=== PATIENT | male | born 1950 | race Hispanic/Latino ===

== ENCOUNTER → 2017-12-03 | Outpatient (CLI) | payer MEDICARE ==
[~2017-12-03] MED LIST: FINASTERIDE5 MG PO; FLOMAX0.4 MG PO; LISINOPRIL10 MG PO; OMEPRAZOLE40 MG PO; SIMVASTATIN20 MG PO; TEMAZEPAM15 MG PO
--- NOTE | 2017-12-03 11:44 | Diagnostic Imaging Report ---
PROCEDURE: Frontal and lateral views of the chest. COMPARISON: None available. INDICATIONS: COUGH, SHORTNESS OF BREATH FOR 1 MONTH FINDINGS: Lines/tubes: None. Lungs: The lungs are well inflated and clear. There is no evidence of pneumonia or pulmonary edema. Biapical scaring. Pleura: There is no pleural effusion or pneumothorax. Heart and mediastinum: The heart and the mediastinum are normal. Bones: No acute bony abnormality. Degenerative changes of thoracic spine. IMPRESSION: 1. No acute cardiopulmonary disease. Dictated by: Pierre Helms M.D. on 12/03/2017 at 11:46 Electronically approved by: Pierre Helms M.D. on 12/03/2017 at 11:46
== END ==
LOC: RAD 10:53
PROVIDERS: ATTEND Internal Medicine
DX: J41.0 Simple chronic bronchitis (principal); R05 Cough
CPT/HCPCS: 71046

== ENCOUNTER → 2019-01-08 | Outpatient (CLI) | payer MEDICARE ==
--- NOTE | 2019-01-08 15:51 | Diagnostic Imaging Report ---
EXAMINATION: PA and lateral views of the chest. COMPARISON: None CLINICAL HISTORY: Chronic bronchitis DISCUSSION: The lungs are well-inflated and without focal airspace consolidation, pleural effusion, or pneumothorax. Atherosclerotic calcification of the thoracic aorta. Normal heart size. No pulmonary edema. No acute osseous abnormality. Multilevel degenerative disc changes of the thoracic spine. IMPRESSION: No acute cardiopulmonary abnormalities. Signed by: Dr. Jelani Briceno M.D. on 01/08/2019 3:48 PM
== END ==
LOC: RAD 15:13
PROVIDERS: ATTEND Internal Medicine
DX: J41.0 Simple chronic bronchitis (principal); I10 Essential (primary) hypertension
CPT/HCPCS: 71046

== ENCOUNTER → 2019-09-19 | Outpatient (CLI) | payer MEDICARE ==
[~2019-09-19] MED LIST changes: +DIATRIZOATE MEGL/DIATRIZOA SOD 30 ML BTL PO ONE; +IOPAMIDOL 370 MG/ML 200 ML INFUS..BTL INJ ONE; +SODIUM CHLORIDE 0.9% 50ML 50 ML ONE
[2019-09-19 10:53] LABS: BLOOD UREA NITROGEN 16 mg/dL (7-26); BUN/CREATININE RATIO 14 (6-25); CREATININE, SERUM 1.16 mg/dL (0.72-1.25); EST GLOMERULAR FILTRATION RATE > 60 ML/MIN (60-)
--- NOTE | 2019-09-19 15:41 | Diagnostic Imaging Report ---
CT of the abdomen and pelvis, with contrast, 09/19/2019. History: Lower abdominal pain. Comparison: None available. Technique: Multidetector CT scanning of the abdomen and pelvis was performed from the level of the lung bases to the inferior pubic rami after intravenous and oral administration of contrast. Coronal and sagittal multiplanar reformations were obtained. RADIATION DOSE: Total DLP: 478 mGy*cm Dose modulation, iterative reconstruction, and/or weight based adjustment of the mA/kV was utilized to reduce the radiation dose to as low as reasonably achievable. Discussion: LUNG BASES: No visualized abnormalities. ABDOMEN: A 2.5 cm oval hypodense lesion is present within the left adrenal gland. The liver, gallbladder, biliary tree, spleen, pancreas, right adrenal gland, and kidneys are normal. The hepatic vein, portal vein, and splenic vein are patent. The abdominal aorta is within normal limits for size. The stomach and small bowel are unremarkable. The appendix is visualized and is normal. Multiple diverticuli are present within the descending and sigmoid colon. There is sigmoid wall thickening with slight adjacent posterior mesenteric fat stranding. There is no free air or focal fluid collection. There is no evidence of adenopathy or free fluid. PELVIS: The bladder is unremarkable. The prostate is prominent measuring 5.3 cm in transverse diameter. Fat-containing right inguinal hernia is noted. There is no evidence of free fluid or adenopathy. BONES AND SOFT TISSUES: Degenerative changes are present throughout the lumbar spine without evidence of lytic or sclerotic lesion. IMPRESSION: 1. Left adrenal lesion which may be further evaluated with noncontrast CT. 2. Mild colonic diverticulitis without evidence of perforation or abscess. 3. Prostatomegaly. Signed by: Daniel Ellis on 09/19/2019 3:39 PM
== END ==
LOC: CT 09:10
PROVIDERS: ATTEND Internal Medicine Gastroenterology
DX: R10.30 Lower abdominal pain, unspecified (principal)
CPT/HCPCS: 36415; 74177; 82565; 84520; Q9967

== ENCOUNTER 2019-10-22 11:23 | Emergency (ER) | payer MEDICARE ==
[~2019-10-22] VITALS: Ht 317.5 cm; Wt 77.6 kg
[~2019-10-22 11:23] MED LIST changes: -DIATRIZOATE MEGL/DIATRIZOA SOD 30 ML BTL PO ONE; -IOPAMIDOL 370 MG/ML 200 ML INFUS..BTL INJ ONE; -SODIUM CHLORIDE 0.9% 50ML 50 ML ONE
--- OUTSIDE RECORDS SUMMARY | 2019-10-22 11:26 | XMS REPORT ---
Author Author [facility] Address Unknown Phone Unavailable Care Team Providers Care Graphic Art Technician Name Role Phone MYA GREEN Unavailable Unavailable AIMEE LOPEZ Unavailable Unavailable Payers Payer Name Policy Type Policy Number Effective Date Expiration Date Problems This patient has no known problems. Allergies, Adverse Reactions, Alerts Allergy Name Allergy Type Status Severity Reaction(s) Onset Date Inactive Date Treating Clinician Comments citalopram DA Active SV 2018-03-28 00:00:00 No Known Contrast Allergies DA Active U 2005-11-11 00:00:00 No Known Drug Allergies DA Active U 2005-11-11 00:00:00 No Known Food Allergies DA Active U 2005-11-11 00:00:00 No Known Other Allergies DA Active U 2005-11-11 00:00:00 Medications This patient has no known medications. Results Test Description Test Time Test Comments Text Results Atomic Results Result Comments CT ABDOMEN/PELVIS W 2019-09-19 15:32:00 [place] [address] Patient Name: SANGEETA LOYA MR #: [id number] : 1950 Age/Sex: 69/M Req #: [id number] Adm Physician: Ordered by: MYA GREEN MD Report #: [id number] Location: [place] Room/Bed: Procedure: [id number] CT/CT ABDOMEN/PELVIS W Exam Date: 09/19/19 Exam Time: 1112 REPORT STATUS: Signed CT of the abdomen and pelvis, with contrast, 0. History: Lower abdominal pain. Comparison: None available. Technique: Multidetector CT scanning of the abdomen and pelvis was performed from the level of the lung bases to the inferior pubic rami after intravenous and oral administration of contrast. Coronal and sagittal multiplanar reformations were obtained. RADIATION DOSE: Total DLP: 478 mGy*cm Dose modulation, iterative reconstruction, and/or weight based adjustment of the mA/kV was utilized to reduce the radiation dose to as low as reasonably achievable. Discussion: LUNG BASES: No visualized abnormalities. ABDOMEN: A 2.5 cm oval hypodense lesion is present within the left adrenal gland. The liver, gallbladder, biliary tree, spleen, pancreas, right adrenal gland, and kidneys are normal. The hepatic vein, portal vein, and splenic vein are patent. The abdominal aorta is within normal limits for size. The stomach and small bowel are unremarkable. The appendix is visualized and is normal. Multiple diverticuli are present within the descending and sigmoid colon. There is sigmoid wall thickening with slight adjacent posterior mesenteric fat stranding. There is no free air or focal fluid collection. There is no evidence of adenopathy or free fluid. PELVIS: The bladder is unremarkable. The prostate is prominent measuring 5.3 cm in transverse diameter. Fat-containing right inguinal hernia is noted. There is no evidence of free fluid or adenopathy. BONES AND SOFT TISSUES: Degenerative changes are present throughout the lumbar spine without evidence of lytic or sclerotic lesion. IMPRESSION: 1. Left adrenal lesion which may be further evaluated with noncontrast CT. 2. Mild colonic diverticulitis without evidence of perforation or abscess. 3. Prostatomegaly. Signed by: Daniel Ellis on 09/19/2019 3:39 PM Dictated By: DANIEL ELLIS MD 1539 Transcribed By: ANNA on 09/19/19 1539 COPY TO: MYA GREEN MD CHEST 2 VIEWS 2019-01-08 15:46:00 [place] [id number] [place] [address] Patient Name: SANGEETA LOYA MR #: [id number] : 1950 Age/Sex: 68/M Req #: [id number] Adm Physician: Ordered by: AIMEE LOPEZ MD Report #: [id number] Location: RAD Room/Bed: Procedure: [id number] DX/CHEST 2 VIEWS Exam Date: 01/08/19 Exam Time: 1531 REPORT STATUS: Signed EXAMINATION: PA and lateral views of the chest. COMPAR CLOVER: None CLINICAL HISTORY: Chronic bronchitis DISCUSSION: The lungs are well-inflated and without focal airspace consolidation, pleural effusion, or pneumothorax. Atherosclerotic calcification of the thoracic aorta. Normal heart size. No pulmonary edema. No acute osseous abnormality. Multilevel degenerative disc changes of the thoracic spine. IMPRESSION: No acute cardiopulmonary abnormalities. Signed by: Dr. Renetta Leiva M.D. on 01/08/2019 3:48 PM Dictated By: RENETTA LEIVA MD 1548 Transcribed By: ANNA on 01/08/19 1548 COPY TO: AIMEE LOPEZ MD CHEST 2 VIEWS [place] [address] Patient Name: SANGEETA LOYA MR #: [id number] : 1950 Age/Sex: 67/M Req #: [id number] Adm Physician: Ordered by: AIMEE LOPEZ MD Report #: [id number] Location: RAD Room/Bed: Procedure: [id number] DX/CHEST 2 VIEWS Exam Date: Exam Time: REPORT STATUS: Signed PROCEDURE: Frontal and lateral views of the chest. COMPARISON: None available. INDICATIONS: COUGH, SHORTNESS OF BREATH FOR 1 MONTH FINDINGS: Lines/tubes: None. Lungs: The lungs are well inflated and clear. There is no evidence of pneumonia or pulmonary edema. Biapical scaring. Pleura: There is no pleural effusion or pneumothorax. Heart and mediastinum: The heart and the mediastinum are normal. Bones: No acute bony abnormality. Degenerative changes of thoracic spine. IMPRESSION: 1. No acute cardiopulmonary disease. Dictated by: Pierre Vazquez M.D. on 12/03/2017 at 11:46 Electronically approved by: Pierre Vazquez M.D. on 12/03/2017 at 11:46 Dictated By: PIERRE VAZQUEZ MD 1146 Transcribed By: BRENDA on 12/03/17 1146 COPY TO: AIMEE LOPEZ MD
--- NOTE | 2019-10-22 12:57 | Diagnostic Imaging Report ---
EXAM: CT Abdomen and Pelvis WITHOUT intravenous contrast INDICATION: Abdominal pain COMPARISON: None. TECHNIQUE: Abdomen and pelvis were scanned utilizing a multidetector helical scanner from the lung base to the pubic symphysis without administration of IV contrast. Coronal and sagittal reformations were obtained. Routine protocol was performed. IV CONTRAST: None ORAL CONTRAST: Water RADIATION DOSE: Total DLP: 930 mGy*cm Dose modulation, iterative reconstruction, and/or weight based adjustment of the mA/kV was utilized to reduce the radiation dose to as low as reasonably achievable. FINDINGS: LOWER THORAX: Normal. HEPATOBILIARY: No focal liver lesion. No biliary ductal dilation. Unremarkable gallbladder. SPLEEN: No splenomegaly. PANCREAS: No focal masses or ductal dilatation. ADRENALS: Low-density 2.5 cm left adrenal nodule consistent with lipid rich benign adenoma. KIDNEYS/URETERS: No hydronephrosis, stones, or solid mass lesions. PELVIC ORGANS/BLADDER: Unremarkable. PERITONEUM / RETROPERITONEUM: No free air or fluid. LYMPH NODES: No lymphadenopathy. VESSELS: Moderate atherosclerotic calcifications of the nonaneurysmal abdominal aorta and major branches. GI TRACT: Severe sigmoid and descending colon diverticulosis. Wall thickening of a segment of sigmoid colon without associated pericolonic fat stranding. Mild diverticulosis also involves the right colon. No bowel obstruction. Normal appendix. BONES AND SOFT TISSUES: No acute osseous injury. No suspicious lytic or blastic lesions. IMPRESSION: Severe diverticulosis with a segment of wall thickening involving the distal sigmoid colon without associated pericolonic fat stranding. This may represent early/mild uncomplicated diverticulitis. Signed by: Ruchi Contreras MD on 10/22/2019 12:54 PM
[2019-10-22 13:08] VITALS: BP 167/81
== END 2019-10-22 13:17 | disposition home or self-care (01) ==
LOC: FSED 11:23
DX: R10.32 Left lower quadrant pain (principal); K57.32 Diverticulitis of large intestine without perforation or abscess without bleeding
CPT/HCPCS: 74176; 80053; 80076; 81003; 85025; 99284

== ENCOUNTER → 2020-01-14 | Outpatient (CLI) | payer MEDICARE | LOC: MRI 09:42 | PROVIDERS: ATTEND Internal Medicine | DX: H81.4 Vertigo of central origin (principal) ==

== ENCOUNTER → 2020-02-03 | Outpatient (CLI) | payer MEDICARE ==
[~2020-02-03] MED LIST changes: +GADOBENATE DIMEGLUMINE 1 ML IV ONE
--- NOTE | 2020-02-03 11:28 | Diagnostic Imaging Report ---
MRI BRAIN WOW HISTORY: Dizziness, vertigo COMPARISON: None. TECHNIQUE: Multiplanar, multisequence MRI of the brain (including diffusion-weighted imaging) was performed before and after the administration of intravenous, gadolinium based contrast. 16 mL of MultiHance were administered per technologist notes. Motion artifacts obscure some details. DISCUSSION: Scalp/bone marrow: Unremarkable. Brain sulci: Mildly prominent. Ventricles: Compensatory dilatation. Extra-axial spaces: No masses or fluid collections. Parenchyma: A few scattered punctate T2/FLAIR hyperintense foci throughout the supratentorial white matter are likely chronic microvascular ischemic changes. Otherwise, no mass, hemorrhage, or acute vascular insults. No abnormal parenchymal, leptomeningeal, or dural enhancement is seen. Vessels: Normal flow voids in major arteries and veins. Sellar/Suprasellar region: No abnormalities. Craniocervical junction: No abnormalities. Incidental findings: Mild right maxillary sinus mucosal thickening is present. IMPRESSION: 1. No acute intracranial abnormalities. 2. Mild generalized cerebral volume loss. 3. Minimal supratentorial chronic microvascular ischemic change. Signed by: Dr. Singh Pickens M.D. on 02/03/2020 11:24 AM
== END ==
LOC: MRI 08:41
PROVIDERS: ATTEND Internal Medicine
DX: H81.4 Vertigo of central origin (principal)
CPT/HCPCS: 70553

== ENCOUNTER → 2020-12-21 | Day surgery (SDC) | payer OTHER ==
[2020-12-16 10:10] LABS: BASOPHILS # (AUTO) 0.1 (0.0-0.1); BASOPHILS % 0.7 % (0.0-1.0); EOSINOPHILS # (AUTO) 0.1 (0.0-0.4); EOSINOPHILS % 1.5 % (0.0-6.0); HEMATOCRIT 43.8 % (38.2-49.6); HEMOGLOBIN 14.5 g/dL (14.0-18.0); LYMPHOCYTES % 23.1 % (18.0-39.1); MEAN CORPUSCULAR HGB CONC 33.1 g/dL (31-35); MEAN CORPUSCULAR VOLUME 90.7 fL (81-99); MONOCYTES # (AUTO) 0.8 (0.2-0.8); MONOCYTES % 9.1 % (4.4-11.3); NEUTROPHILS # (AUTO) 5.6 (2.1-6.9); NEUTROPHILS % 65.2 % (38.7-80.0); PLATELET COUNT 189 x10e3/uL (140-360); RED BLOOD COUNT 4.83 x10e6/uL (4.3-5.7); RED CELL DISTRIBUTION WIDTH 13.7 % (11.7-14.4)
[2020-12-16 11:30] LABS: ALBUMIN 3.7 g/dL (3.5-5.0); ANION GAP 15.4 mmol/L (8-16); CALCIUM 8.7 mg/dL (8.4-10.2); CREATININE, SERUM 1.87 mg/dL (0.72-1.25); POTASSIUM 4.4 mmol/L (3.5-5.1)
[~2020-12-21] VITALS: Ht 317.5 cm; Wt 80.7 kg
[2020-12-21] VITALS (7 sets, daily range): BP systolic 104–122; BP diastolic 59–77
[~2020-12-21] MED LIST changes: +ALPRAZOLAM 0.5 MG TAB ONE; +AMLODIPINE BESYL5 MG PO; +ASPIRIN 325 MG TAB ONE; +ASPIRIN81 MG PO; +ATORVASTATIN CA20 MG PO; +CLOPIDOGREL75 MG PO; +DIPHENHYDRAMINE HCL 25 MG CAP ONE; +FENTANYL CITRATE/PF 100MCG/2 ML INJ ONE; -GADOBENATE DIMEGLUMINE 1 ML IV ONE; +HEPARIN SOD (PORCINE) 1000 UNIT/ML 30ML ONE; +HEPARIN SOD/SOD CHLORIDE 2,000 ML ONE; +IOPAMIDOL 300MG/ML 100 ML INFUS..BTL IV ONE; +LIDOCAINE HCL 2% LOCAL 20 ML VIAL ONE; +MECLIZINE HCL12.5 MG PO; +METOPROLOL SUCC25 MG PO; +MIDAZOLAM HCL 2 MG/2 ML VIAL ONE; +NITROGLYCERIN/D5W 200 MCG/ML 250 ML ONE; +PRASUGREL 10 MG TAB ONE; +PROTAMINE SULFATE 10 MG/ML 5 ML VIAL ONE; +RANEXA500 MG PO; +SODIUM CHLORIDE 0.9% 1000ML 1,000 ML ONE; +SODIUM CHLORIDE 0.9% 50ML 50 ML ONE; +[UNRECOGNIZED DRUG - OTHER] PO; +isosorbide PO
== END | disposition home or self-care (01) ==
LOC: CATH LAB 12-16 12:44 → EDSTATUS 15:00
PROVIDERS: ATTEND Internal Medicine Interventional Cardiology
DX: I70.211 Atherosclerosis of native arteries of extremities with intermittent claudication, right leg (principal); I25.118 Atherosclerotic heart disease of native coronary artery with other forms of angina pectoris; I10 Essential (primary) hypertension; Z79.02 Long term (current) use of antithrombotics/antiplatelets; Z79.82 Long term (current) use of aspirin; Z82.49 Family history of ischemic heart disease and other diseases of the circulatory system
CPT/HCPCS: 36247; 36415; 37186; 37224; 37225; 75625; 75716; 76937; 80053; 83880; 85025; 99152; 99153; C1714; C1760; C1769; C1887; C2623; J1644; J2001; J2250; J2720; J3010; J7030; Q9967

== ENCOUNTER → 2021-04-13 | Outpatient (CLI) | payer OTHER ==
[~2021-04-13] MED LIST changes: -ALPRAZOLAM 0.5 MG TAB ONE; -ASPIRIN 325 MG TAB ONE; -DIPHENHYDRAMINE HCL 25 MG CAP ONE; -FENTANYL CITRATE/PF 100MCG/2 ML INJ ONE; -HEPARIN SOD (PORCINE) 1000 UNIT/ML 30ML ONE; -HEPARIN SOD/SOD CHLORIDE 2,000 ML ONE; -IOPAMIDOL 300MG/ML 100 ML INFUS..BTL IV ONE; -LIDOCAINE HCL 2% LOCAL 20 ML VIAL ONE; -MIDAZOLAM HCL 2 MG/2 ML VIAL ONE; -NITROGLYCERIN/D5W 200 MCG/ML 250 ML ONE; -PRASUGREL 10 MG TAB ONE; -PROTAMINE SULFATE 10 MG/ML 5 ML VIAL ONE; -SODIUM CHLORIDE 0.9% 1000ML 1,000 ML ONE; -SODIUM CHLORIDE 0.9% 50ML 50 ML ONE
== END ==
LOC: RAD 11:52
PROVIDERS: ATTEND Internal Medicine
DX: M54.41 Lumbago with sciatica, right side (principal)
CPT/HCPCS: 72100

== ENCOUNTER → 2021-09-28 | Outpatient (CLI) | payer OTHER | LOC: CT 12:33 | PROVIDERS: ATTEND Internal Medicine | DX: R47.81 Slurred speech (principal); I13.0 Hypertensive heart and chronic kidney disease with heart failure and stage 1 through stage 4 chronic kidney disease, or unspecified chronic kidney disease | CPT/HCPCS: 70450 ==

== ENCOUNTER → 2021-11-21 | Outpatient (CLI) | payer OTHER | LOC: RAD 13:59 | PROVIDERS: ATTEND Internal Medicine Critical Care Medicine | DX: R06.00 Dyspnea, unspecified (principal) | CPT/HCPCS: 71046 ==

== ENCOUNTER → 2022-06-15 | Outpatient (CLI) | payer OTHER ==
[~2022-06-15] MED LIST changes: +CILOSTAZOL100 MG PO; +D3-5000125 MCG PO; +FUROSEMIDE40 MG PO; +LOSARTAN POTASS25 MG PO
== END ==
LOC: RAD 12:16
PROVIDERS: ATTEND Internal Medicine
DX: I50.33 Acute on chronic diastolic (congestive) heart failure (principal); J41.0 Simple chronic bronchitis
CPT/HCPCS: 71046

== ENCOUNTER 2024-09-08 13:08 | Inpatient (IN) | payer MEDICARE, OTHER ==
[~2024-09-08] VITALS: Ht 165.1 cm; Wt 72.6 kg
[2024-09-08 15:27] LABS: BASOPHILS # (AUTO) 0.1 (0.0-0.1); BASOPHILS % 0.3 % (0.0-1.0); EOSINOPHILS # (AUTO) 0.1 (0.0-0.4); EOSINOPHILS % 0.5 % (0.0-6.0); HEMATOCRIT 43.1 % (38.2-49.6); HEMOGLOBIN 15.4 g/dL (14.0-18.0); LYMPHOCYTES # (AUTO) 1.6 (1.0-3.2); MEAN CORPUSCULAR HEMOGLOBIN 32.2 pg (28-32); MEAN CORPUSCULAR HGB CONC 35.7 g/dL (31-35); MEAN CORPUSCULAR VOLUME 90.2 fL (81-99); MONOCYTES # (AUTO) 1.1 (0.2-0.8); MONOCYTES % 7.7 % (4.4-11.3); NEUTROPHILS # (AUTO) 11.6 (2.1-6.9); NEUTROPHILS % 79.2 % (38.7-80.0); PLATELET COUNT 265 x10e3/uL (140-360); RED BLOOD COUNT 4.78 x10e6/uL (4.3-5.7); RED CELL DISTRIBUTION WIDTH 12.3 % (11.7-14.4); WHITE BLOOD COUNT 14.66 x10e3/uL (4.8-10.8)
[2024-09-08 15:31] LABS: BILIRUBIN,URINE NEGATIVE (NEGATIVE); CLARITY,URINE CLEAR (CLEAR); COLOR,URINE YELLOW (YELLOW); GLUCOSE, URINE NEGATIVE (NEGATIVE); KETONES,URINE NEGATIVE (NEGATIVE); LEUKOCYTE ESTERASE ,URINE NEGATIVE (NEGATIVE); NITRITE,URINE NEGATIVE (NEGATIVE); PH,URINE 5.5 (5 - 7); PROTEIN,URINE DIPSTICK NEGATIVE (NEGATIVE); URINE UROBILINOGEN 0.2 mg/dL (0.2 - 1)
[2024-09-08 15:33] LABS: BACTERIA,URINE FEW /HPF; EPITHELIAL CELLS,URINE FEW /LPF; RBC,URINE 0-5 /HPF (0-5); WBC,URINE (MAN) 0-5 /HPF (0-5)
[2024-09-08 15:34] LABS: INR 0.95; PROTHROMBIN TIME 13.3 seconds (11.9-14.5)
[2024-09-08 15:34] LABS: HYALINE CASTS >15 (0-1)
[2024-09-08 15:35] LABS: PARTIAL THROMBOPLASTIN TIME 25.8 seconds (23.8-35.5)
[2024-09-08 15:50] LABS: ALANINE AMINOTRANSFERASE 14 IU/L (0-55); ALBUMIN/GLOBULIN RATIO 0.9 (0.8-2.0); ALKALINE PHOSPHATASE 86 IU/L (40-150); ANION GAP 22.2 mmol/L (8-16); BILIRUBIN,TOTAL 1.2 mg/dL (0.2-1.2); CALCIUM 10.2 mg/dL (8.4-10.2); CARBON DIOXIDE 27 mmol/L (22-29); CHLORIDE 87 mmol/L (98-107); CREATININE, SERUM 6.68 mg/dL (0.72-1.25); EST GLOMERULAR FILTRATION RATE 8 ML/MIN (>=60); GLUCOSE 168 mg/dL (74-118); SODIUM 133 mmol/L (136-145); TOTAL PROTEIN 8.3 g/dL (6.5-8.1)
[2024-09-08 16:04] LABS: BLOOD UREA NITROGEN 146 mg/dL (7-26); POTASSIUM 3.2 mmol/L (3.5-5.1)
[2024-09-08 19:09] VITALS: PULSE 100; RESP 17; TEMP 97.6
[2024-09-08] MEDS: SODIUM CHLORIDE 0.9% 1000ML 1,000 ML IV SCH (19:19)
[2024-09-08 20:03] VITALS: BP 140/72; PULSE 91; RESP 20; TEMP 97.6; O2SAT 99
[2024-09-08 21:30] VITALS: BP 146/77; PULSE 89; RESP 16; TEMP 97.9; O2SAT 99
[2024-09-08] MEDS ORDERED: POTASSIUM CHLO20 ME1 PO (22:01)
[2024-09-08] MEDS ORDERED: TOPROL XL50 MG PO (22:01)
[2024-09-08] MEDS ORDERED: TORSEMIDE20 MG PO (22:01)
[2024-09-08] MEDS ORDERED: ISOSORBIDE MONO30 MG PO (22:01)
[2024-09-08] MEDS ORDERED: ATORVASTATIN CA10 MG PO (22:01)
[2024-09-08] MEDS ORDERED: FAMOTIDINE20 MG PO (22:01)
[2024-09-08 23:33] VITALS: PULSE 99; RESP 18; O2SAT 98
[2024-09-09] VITALS (11 sets, daily range): BP systolic 120–144; BP diastolic 59–74; PULSE 85–105; RESP 18–20; TEMP 97–98.9; O2SAT 96–100
[2024-09-09] MEDS ORDERED: DEXTROSE 50% SYRINGE 50 ML IV PRN (02:00)
[2024-09-09] MEDS ORDERED: SIMETHICONE 80 MG CHEW PO PRN (02:00)
[2024-09-09] MEDS ORDERED: ONDANSETRON HCL INJ 2MG/ML 2ML 2 MG/ML VIAL IV PRN (02:00)
[2024-09-09] MEDS ORDERED: LIDOCAINE 4% PATCH TP PRN (02:00)
[2024-09-09] MEDS ORDERED: MELATONIN 5 MG TABLET PO PRN (02:00)
[2024-09-09] MEDS ORDERED: ALBUTEROL/IPRATROPIUM 3 ML NEB NEB PRN (02:00)
[2024-09-09] MEDS ORDERED: BENZONATATE 100 MG CAP PO PRN (02:00)
[2024-09-09] MEDS ORDERED: DIPHENHYDRAMINE HCL 25 MG CAP PO PRN (02:00)
[2024-09-09] MEDS ORDERED: HYDRALAZINE HCL 20 MG/ML VIAL IV PRN (02:00)
[2024-09-09 06:59] LABS: BASOPHILS # (AUTO) 0.1 (0.0-0.1); BASOPHILS % 0.4 % (0.0-1.0); EOSINOPHILS # (AUTO) 0.2 (0.0-0.4); EOSINOPHILS % 1.9 % (0.0-6.0); HEMATOCRIT 40.2 % (38.2-49.6); HEMOGLOBIN 14.4 g/dL (14.0-18.0); LYMPHOCYTES % 17.3 % (18.0-39.1); MEAN CORPUSCULAR HEMOGLOBIN 32.6 pg (28-32); MEAN CORPUSCULAR HGB CONC 35.8 g/dL (31-35); MONOCYTES # (AUTO) 1.2 (0.2-0.8); MONOCYTES % 10.3 % (4.4-11.3); NEUTROPHILS % 69.1 % (38.7-80.0); PLATELET COUNT 237 x10e3/uL (140-360); RED BLOOD COUNT 4.42 x10e6/uL (4.3-5.7); RED CELL DISTRIBUTION WIDTH 12.3 % (11.7-14.4); WHITE BLOOD COUNT 11.55 x10e3/uL (4.8-10.8)
[2024-09-09 07:27] LABS: ANION GAP 19.7 mmol/L (8-16); CALCIUM 9.2 mg/dL (8.4-10.2); CREATININE, SERUM 4.95 mg/dL (0.72-1.25)
[2024-09-09 07:29] LABS: POTASSIUM 2.7 mmol/L (3.5-5.1)
[2024-09-09 07:36] LABS: CHOL/HDL RATIO 5.3 (3.9-4.7); PHOSPHORUS 3.9 MG/DL (2.3-4.7)
[2024-09-09] MEDS: PANTOPRAZOLE SOD 40 MG TABEC PO SCH (09:12)
[2024-09-09] MEDS: RANOLAZINE 500 MG TABSR PO SCH (09:12)
[2024-09-09] MEDS: ATORVASTATIN 10 MG TAB PO SCH (09:12)
[2024-09-09] MEDS: POTASSIUM CHLORIDE 10MEQ EA PO ONE (09:13)
[2024-09-09] MEDS: METOPROLOL SUCCINATE 50 MG TAB XL PO SCH (09:13)
[2024-09-09] MEDS: CLOPIDOGREL BISULFATE 75 MG TAB PO SCH (09:13)
[2024-09-09] MEDS: TAMSULOSIN HCL 0.4 MG CAP PO SCH (09:13)
[2024-09-09] MEDS: DOCUSATE SODIUM 100 MG CAP PO PRN (09:27)
[2024-09-09] MEDS: POTASSIUM CHLORIDE 20 MEQ TAB CR PO ONE (14:05)
[2024-09-09] MEDS: HEPARIN SOD (PORCINE) 5,000 UNIT/ML VIAL SC SCH (21:33)
[2024-09-10] VITALS (11 sets, daily range): BP systolic 130–165; BP diastolic 66–82; PULSE 75–89; RESP 17–21; TEMP 97.5–98.6; O2SAT 96–100
[2024-09-10 06:33] LABS: ANION GAP 16.2 mmol/L (8-16); CREATININE, SERUM 3.06 mg/dL (0.72-1.25)
[2024-09-10 06:38] LABS: POTASSIUM 3.2 mmol/L (3.5-5.1)
[2024-09-10] MEDS: POTASSIUM CHLORIDE 20 MEQ TAB CR PO PRN (10:12)
[2024-09-10] MEDS: ASPIRIN 81 MG CHEW TAB PO SCH (10:12)
[2024-09-10] MEDS: POTASSIUM CHLORIDE 20 MEQ TAB CR PO STA (17:33)
[2024-09-11] VITALS (7 sets, daily range): BP systolic 135–158; BP diastolic 55–65; PULSE 75–100; RESP 17–20; TEMP 95.7–98.3; O2SAT 99–100
[2024-09-11] MEDS: ACETAMINOPHEN 325 MG TAB PO PRN (01:34)
[2024-09-11 07:57] LABS: ANION GAP 13.5 mmol/L (8-16); CALCIUM 8.4 mg/dL (8.4-10.2); CREATININE, SERUM 2.35 mg/dL (0.72-1.25); POTASSIUM 3.5 mmol/L (3.5-5.1)
[2024-09-11] MEDS ORDERED: METOLAZONE5 MG PO (13:48)
[2024-09-11] MEDS ORDERED: ALLOPURINOL100 MG PO (13:48)
== END 2024-09-11 15:55 | disposition home or self-care (01) | DRG 918 ==
LOC: ER 16:49 → ERHOLD 16:57 → ER 16:58 → MED/SURG3 20:05
PROVIDERS: ADMIT Internal Medicine; ATTEND Internal Medicine
DX: T50.2X1A Poisoning by carbonic-anhydrase inhibitors, benzothiadiazides and other diuretics, accidental (unintentional), initial encounter (principal); N17.9 Acute kidney failure, unspecified; I13.0 Hypertensive heart and chronic kidney disease with heart failure and stage 1 through stage 4 chronic kidney disease, or unspecified chronic kidney disease; I50.32 Chronic diastolic (congestive) heart failure; N18.4 Chronic kidney disease, stage 4 (severe); T50.1X1A Poisoning by loop [high-ceiling] diuretics, accidental (unintentional), initial encounter; E86.0 Dehydration; E87.6 Hypokalemia; Y92.009 Unspecified place in unspecified non-institutional (private) residence as the place of occurrence of the external cause; E78.5 Hyperlipidemia, unspecified; N40.0 Benign prostatic hyperplasia without lower urinary tract symptoms; I25.10 Atherosclerotic heart disease of native coronary artery without angina pectoris; Z95.5 Presence of coronary angioplasty implant and graft; I73.9 Peripheral vascular disease, unspecified; Z95.820 Peripheral vascular angioplasty status with implants and grafts; Z79.82 Long term (current) use of aspirin; Z79.02 Long term (current) use of antithrombotics/antiplatelets; Z79.899 Other long term (current) drug therapy
CPT/HCPCS: 36415; 71045; 80048; 80053; 80061; 81001; 83036; 83735; 84100; 84132; 85025; 85610; 85730; 93005; 94799; 99284; J0360; J1644; J7030

== ENCOUNTER → 2024-10-16 | Outpatient (REF) | payer OTHER ==
[~2024-10-16] MED LIST changes: +ALLOPURINOL100 MG PO; +ATORVASTATIN CA10 MG PO; +FAMOTIDINE20 MG PO; +ISOSORBIDE MONO30 MG PO; +METOLAZONE5 MG PO; +POTASSIUM CHLO20 ME1 PO; +TOPROL XL50 MG PO; +TORSEMIDE20 MG PO
== END ==
LOC: RAD 15:02
PROVIDERS: ATTEND Internal Medicine
DX: M54.50 Low back pain, unspecified (principal); M25.552 Pain in left hip; M25.562 Pain in left knee; Z91.81 History of falling
CPT/HCPCS: 72110